=== PATIENT | female | born 1960 | race Caucasian/White ===

== ENCOUNTER 2017-03-05 09:44 | Outpatient (CLI) | payer OTHER | END 2017-03-05 19:09 | disposition home or self-care (01) | LOC: SRD 09:44 | PROVIDERS: ATTEND Family Medicine | DX: M20.11 Hallux valgus (acquired), right foot (principal); M21.071 Valgus deformity, not elsewhere classified, right ankle; M19.071 Primary osteoarthritis, right ankle and foot; M21.611 Bunion of right foot ==

== ENCOUNTER 2017-06-30 07:48 | Outpatient (CLI) | payer OTHER ==
[2017-06-30 08:12] LABS: BASOPHILS # (AUTO) 0.1 K/uL (0.0-0.2); BASOPHILS % (AUTO) 1.2 % (0.0-2.0); EOSINOPHILS # (AUTO) 0.2 K/uL (0.0-0.4); EOSINOPHILS % (AUTO) 3.4 % (0.0-4.0); HEMATOCRIT 47.1 % (36-48); HEMOGLOBIN 15.2 g/dL (12.0-16.0); LYMPHOCYTES # (AUTO) 1.7 K/uL (1.0-5.5); LYMPHOCYTES % (AUTO) 34.2 % (20.5-51.5); MEAN CORPUSCULAR HEMOGLOBIN 29 pg (27-31); MEAN CORPUSCULAR HGB CONC 32 % (32-36); MEAN CORPUSCULAR VOLUME 91 fL (79.0-98.0); MONOCYTES # (AUTO) 0.5 K/uL (0.0-1.0); MONOCYTES % (AUTO) 9.5 % (1.7-9.3); NEUTROPHILS # (AUTO) 2.4 K/uL (1.8-7.7); NEUTROPHILS % (AUTO) 51.7 % (40.0-70.0); PLATELET COUNT (AUTO) 251 K/uL (130-430); RED CELL DISTRIBUTION WIDTH 11.7 % (9.0-15.0); WHITE BLOOD COUNT (AUTO) 4.9 K/uL (4.8-10.8)
[2017-06-30 08:40] LABS: BILIRUBIN,URINE NEGATIVE (NEGATIVE); BLOOD, URINE 1+ (NEGATIVE); CLARITY/URINE SL HAZY (CLEAR); COLOR,URINE YELLOW (YELLOW); GLUCOSE,URINE NEGATIVE (NEGATIVE); KETONES,URINE NEGATIVE (NEGATIVE); LEUKOCYTE ESTERASE ,URINE NEGATIVE (NEGATIVE); NITRITE, URINE NEGATIVE (NEGATIVE); PH,URINE 5.5 (5.0-8.0); PROTEIN URINE NEGATIVE (NEGATIVE); UROBILINOGEN,URINE 0.2 (0.2-1.0)
[2017-06-30 08:41] LABS: CALCIUM 9.6 mg/dL (8.4-11.0); CREATININE 0.72 mg/dL (0.55-1.30); POTASSIUM 4.3 mmol/L (3.5-5.1); TOTAL BILIRUBIN 0.7 mg/dL (0.0-1.0)
[2017-06-30 08:49] LABS: THYROID STIMULATING HORMONE 1.33 uIu/mL (0.34-4.82)
[2017-06-30 09:18] LABS: BACTERIA,URINE RARE /HPF (None Seen); WBC,URINE 0-3 /HPF (0-3)
[2017-06-30 09:19] LABS: MUCUS,URINE 1+ /LPF (None Seen)
[2017-07-01 06:06] LABS: HEMOGLOBIN A1C 5.6 % (4.8-5.6)
[2017-07-01 12:09] LABS: T4 (THYROXINE) 6.5 ug/dL (4.5-12.0); TRIIODOTHYRONINE, FREE 3.1 pg/mL (2.0-4.4)
== END 2017-06-30 20:51 | disposition home or self-care (01) ==
LOC: SLB 07:48
PROVIDERS: ATTEND Family Medicine
DX: M17.11 Unilateral primary osteoarthritis, right knee (principal); M16.11 Unilateral primary osteoarthritis, right hip; M47.894 Other spondylosis, thoracic region; E04.1 Nontoxic single thyroid nodule
CPT/HCPCS: 36415; 71250-TC; 73502; 73564; 80053; 80061; 81000-TC; 82977-TC; 83036; 84436; 84443-TC; 84480; 84481; 85025

== ENCOUNTER 2017-08-13 08:02 | Outpatient (CLI) | payer OTHER | END 2017-08-13 19:40 | disposition home or self-care (01) | LOC: SUS 08:02 | PROVIDERS: ATTEND Family Medicine | DX: Z12.31 Encounter for screening mammogram for malignant neoplasm of breast (principal); M17.11 Unilateral primary osteoarthritis, right knee; E04.2 Nontoxic multinodular goiter | CPT/HCPCS: 73721; 76536; G0202 ==

== ENCOUNTER 2017-09-10 13:30 | Outpatient (CLI) | payer OTHER | END 2017-09-10 18:45 | disposition home or self-care (01) | LOC: SRD 13:30 | PROVIDERS: ATTEND Orthopaedic Surgery | DX: M25.561 Pain in right knee (principal) ==

== ENCOUNTER 2017-09-16 11:26 | Outpatient (CLI) | payer OTHER | END 2017-09-16 19:49 | disposition home or self-care (01) | LOC: SMI 11:26 | PROVIDERS: ATTEND Family Medicine | DX: M51.26 Other intervertebral disc displacement, lumbar region (principal) | CPT/HCPCS: 72148 ==

== ENCOUNTER 2018-07-12 10:02 | Outpatient (CLI) | payer OTHER | END 2018-07-12 19:23 | disposition home or self-care (01) | LOC: SMI 10:02 | PROVIDERS: ATTEND Family Medicine | DX: M23.91 Unspecified internal derangement of right knee (principal); M25.461 Effusion, right knee | CPT/HCPCS: 73721 ==

== ENCOUNTER 2018-10-22 11:19 | Outpatient (CLI) | payer OTHER ==
[2018-10-22 11:41] LABS: BILIRUBIN,URINE NEGATIVE (NEGATIVE); BLOOD, URINE 1+ (NEGATIVE); CLARITY/URINE CLEAR (CLEAR); COLOR,URINE YELLOW (YELLOW); GLUCOSE,URINE NEGATIVE (NEGATIVE); KETONES,URINE NEGATIVE (NEGATIVE); LEUKOCYTE ESTERASE ,URINE NEGATIVE (NEGATIVE); NITRITE, URINE NEGATIVE (NEGATIVE); PROTEIN URINE NEGATIVE (NEGATIVE); UROBILINOGEN,URINE 0.2 (0.2-1.0)
[2018-10-22 11:56] LABS: BACTERIA,URINE FEW /HPF (None Seen); MUCUS,URINE 1+ /LPF (None Seen); RBC,URINE 0-3 /HPF (0-3)
== END 2018-10-22 19:31 | disposition home or self-care (01) ==
LOC: SLB 11:19
PROVIDERS: ATTEND Family Medicine
DX: R35.0 Frequency of micturition (principal)
CPT/HCPCS: 81000-TC; 87086

== ENCOUNTER 2018-10-28 09:45 | Outpatient (CLI) | payer OTHER ==
[2018-10-28 10:11] LABS: BILIRUBIN,URINE NEGATIVE (NEGATIVE); CLARITY/URINE CLEAR (CLEAR); COLOR,URINE YELLOW (YELLOW); GLUCOSE,URINE NEGATIVE (NEGATIVE); KETONES,URINE NEGATIVE (NEGATIVE); LEUKOCYTE ESTERASE ,URINE NEGATIVE (NEGATIVE); NITRITE, URINE NEGATIVE (NEGATIVE); PH,URINE 5.5 (5.0-8.0); PROTEIN URINE NEGATIVE (NEGATIVE); UROBILINOGEN,URINE 0.2 (0.2-1.0)
[2018-10-28 10:15] LABS: BLOOD, URINE TRACE (NEGATIVE)
[2018-10-28 10:25] LABS: BACTERIA,URINE FEW /HPF (None Seen); MUCUS,URINE None Seen /LPF (None Seen); RBC,URINE 0-3 /HPF (0-3); WBC,URINE 0-3 /HPF (0-3)
== END 2018-10-28 21:04 | disposition home or self-care (01) ==
LOC: SLB 09:45
PROVIDERS: ATTEND Family Medicine
DX: N39.0 Urinary tract infection, site not specified (principal)
CPT/HCPCS: 81000-TC

== ENCOUNTER 2018-12-14 11:53 | Outpatient (CLI) | payer OTHER | END 2018-12-14 21:20 | disposition home or self-care (01) | LOC: SCT 11:53 | PROVIDERS: ATTEND Family Medicine | DX: R10.31 Right lower quadrant pain (principal) ==

== ENCOUNTER 2019-02-25 08:10 | Outpatient (CLI) | payer OTHER ==
[2019-02-25 09:00] LABS: BASOPHILS % (AUTO) 0.7 % (0.0-2.0); EOSINOPHILS # (AUTO) 0.2 K/uL (0.0-0.4); EOSINOPHILS % (AUTO) 3.3 % (0.0-4.0); HEMATOCRIT 44.6 % (36-48); HEMOGLOBIN 15.1 g/dL (12.0-16.0); LYMPHOCYTES # (AUTO) 1.5 K/uL (1.0-5.5); LYMPHOCYTES % (AUTO) 31.7 % (20.5-51.5); MEAN CORPUSCULAR HEMOGLOBIN 31 pg (27-31); MEAN CORPUSCULAR HGB CONC 34 % (32-36); MEAN CORPUSCULAR VOLUME 92 fL (79.0-98.0); MONOCYTES # (AUTO) 0.5 K/uL (0.0-1.0); MONOCYTES % (AUTO) 10.1 % (1.7-9.3); NEUTROPHILS # (AUTO) 2.6 K/uL (1.8-7.7); NEUTROPHILS % (AUTO) 54.2 % (40.0-70.0); PLATELET COUNT (AUTO) 238 K/uL (130-430); RED BLOOD CELL COUNT(AUTO) 4.85 MIL/uL (4.2-6.2); RED CELL DISTRIBUTION WIDTH 12.8 % (9.0-15.0); WHITE BLOOD COUNT (AUTO) 4.8 K/uL (4.8-10.8)
[2019-02-25 09:36] LABS: CALCIUM 9.7 mg/dL (8.4-11.0); CREATININE 0.77 mg/dL (0.55-1.30); FREE T4 (FREE THYROXINE) 0.8 ng/dL (0.6-1.6); POTASSIUM 4.5 mmol/L (3.5-5.1); THYROID STIMULATING HORMONE 1.28 uIu/mL (0.34-4.82); TOTAL BILIRUBIN 0.6 mg/dL (0.0-1.0)
[2019-02-26 06:06] LABS: TRIIODOTHYRONINE, FREE 2.6 pg/mL (2.0-4.4)
== END 2019-02-25 19:27 | disposition home or self-care (01) ==
LOC: SLB 08:10
PROVIDERS: ATTEND Family Medicine
DX: E04.1 Nontoxic single thyroid nodule (principal); R49.9 Unspecified voice and resonance disorder
CPT/HCPCS: 36415; 76536-TC; 80053; 82306; 82607; 84439; 84443-TC; 84480; 84481; 85025

== ENCOUNTER 2019-09-06 13:30 | Outpatient (CLI) | payer OTHER | END 2019-09-06 21:14 | disposition home or self-care (01) | LOC: SRD 13:30 | PROVIDERS: ATTEND Family Medicine | DX: K41.90 Unilateral femoral hernia, without obstruction or gangrene, not specified as recurrent (principal); K57.90 Diverticulosis of intestine, part unspecified, without perforation or abscess without bleeding ==

== ENCOUNTER 2019-10-18 06:55 | Day surgery (SDC) | payer OTHER ==
[2019-10-14 11:25] LABS: BASOPHILS # (AUTO) 0.1 K/uL (0.0-0.2); BASOPHILS % (AUTO) 0.9 % (0.0-2.0); EOSINOPHILS # (AUTO) 0.2 K/uL (0.0-0.4); EOSINOPHILS % (AUTO) 3.6 % (0.0-4.0); HEMATOCRIT 44.7 % (36-48); HEMOGLOBIN 14.8 g/dL (12.0-16.0); LYMPHOCYTES # (AUTO) 1.9 K/uL (1.0-5.5); LYMPHOCYTES % (AUTO) 34.3 % (20.5-51.5); MEAN CORPUSCULAR HEMOGLOBIN 31 pg (27-31); MEAN CORPUSCULAR HGB CONC 33 % (32-36); MEAN CORPUSCULAR VOLUME 93 fL (79.0-98.0); MONOCYTES # (AUTO) 0.5 K/uL (0.0-1.0); MONOCYTES % (AUTO) 8.4 % (1.7-9.3); NEUTROPHILS # (AUTO) 2.8 K/uL (1.8-7.7); NEUTROPHILS % (AUTO) 52.8 % (40.0-70.0); PLATELET COUNT (AUTO) 238 K/uL (130-430); RED CELL DISTRIBUTION WIDTH 12.5 % (9.0-15.0); WHITE BLOOD COUNT (AUTO) 5.4 K/uL (4.8-10.8)
[2019-10-14 11:34] LABS: PROTHROMBIN TIME 10.1 SECS (9.5-12.5)
[2019-10-14 11:44] LABS: ALBUMIN 3.9 g/dL (3.4-4.8); CALCIUM 9.5 mg/dL (8.4-11.0); CREATININE 0.75 mg/dL (0.55-1.30); POTASSIUM 4.2 mmol/L (3.5-5.1); TOTAL BILIRUBIN 0.5 mg/dL (0.0-1.0)
[~2019-10-18] VITALS: Ht 175.3 cm; Wt 84.8 kg
[2019-10-18] MEDS ORDERED: NS 1000 ML IV.SOLN IV ONE (07:35)
[2019-10-18] MEDS ORDERED: fentaNYL CITRATE/PF 100 MCG/2 ML AMP IVP ONE (07:35)
[2019-10-18] MEDS ORDERED: BUPIVACAINE LIPOSOME/PF 266 MG/20 ML VIAL INFIL ONE (07:35)
[2019-10-18] MEDS ORDERED: SEVOFLURANE 15 MIN GAS INH ONE (07:35)
[2019-10-18] MEDS ORDERED: KETOROLAC TROMETHAMINE 30 MG VIAL IVP ONE (07:35)
[2019-10-18] MEDS ORDERED: BUPIVACAINE /EPINEPHRINE/PF 0.25% 30 ML VIAL INJ ONE (07:35)
[2019-10-18] MEDS ORDERED: ROCURONIUM BROMIDE 10 MG/ML (ZEMURON) IV ONE (07:35)
[2019-10-18] MEDS ORDERED: METOCLOPRAMIDE HCL 10 MG/2 ML VIAL IVP ONE (07:35)
[2019-10-18] MEDS ORDERED: CEFAZOLIN 2 GM IVPB PREMIX 50 ML IV ONE (07:35)
[2019-10-18] MEDS ORDERED: PROPOFOL 200MG/ 20ML VIAL (DIPRIVAN) IV ONE (07:35)
[2019-10-18] MEDS ORDERED: NEOSTIGMINE METHYLSULFATE 1 MG/ML, 10 ML VIAL IVP ONE (07:35)
[2019-10-18] MEDS ORDERED: ONDANSETRON HCL 4 MG/2 ML VIAL IVP ONE (07:35)
[2019-10-18] MEDS ORDERED: MIDAZOLAM HCL 5 MG/5 ML VIAL IVP ONE (07:35)
[2019-10-18] MEDS ORDERED: GLYCOPYRROLATE 0.2 MG/ML VIAL IJ ONE (07:35)
[2019-10-18] MEDS ORDERED: LR 500 ML IV SCH (08:10)
[2019-10-18] MEDS ORDERED: ONDANSETRON HCL 4 MG/2 ML VIAL IVP PRN (08:15)
[2019-10-18] MEDS ORDERED: KETOROLAC TROMETHAMINE 30 MG VIAL IVP PRN (08:15)
[2019-10-18] MEDS ORDERED: HYDROcodone/ACETAMIN 5-325 MG TAB (NORCO/ VICODIN) PO PRN (09:00)
[2019-10-18] MEDS: HYDROmorphone 1 MG INJ. 1 MG/ML AMPUL IVP PRN ×2 (09:10→09:30)
[2019-10-18 10:25] VITALS: BP_SYST 121
[2019-10-18] MEDS ORDERED: HYDROcodone/ACETAMIN 5-325 MG TAB (NORCO/ VICODIN) ONE (10:36)
[2019-10-18] MEDS ORDERED: ONDANSETRON HCL 4 MG/2 ML VIAL ONE (11:05)
[2019-10-18] MEDS ORDERED: ACETAMINOPHEN 325 MG TABLET PO PRN (11:15)
== END 2019-10-18 13:20 | disposition home or self-care (01) ==
LOC: SMU 06:55 → SDS 06:55
PROVIDERS: ATTEND Surgery
DX: K40.90 Unilateral inguinal hernia, without obstruction or gangrene, not specified as recurrent (principal); K42.0 Umbilical hernia with obstruction, without gangrene; Z79.01 Long term (current) use of anticoagulants
CPT/HCPCS: 36415; 49505; 49587; 71046; 80053; 85025; 85610; 85730; 88302; 93005; C1781; C9290; J0690; J1885; J2250; J2405; J2704; J2710; J2765; J3010; J3490 ×2; J7030; J7120

== ENCOUNTER 2019-12-22 12:42 | Outpatient (CLI) | payer OTHER | END 2019-12-22 21:12 | disposition home or self-care (01) | LOC: EEVIPCON 12:42 → SLB 12:42 | PROVIDERS: ATTEND Otolaryngology | DX: Z03.818 Encounter for observation for suspected exposure to other biological agents ruled out (principal) | CPT/HCPCS: U0002 ==

== ENCOUNTER 2020-01-13 07:34 | Day surgery (SDC) | payer OTHER, SELFPAY ==
[~2020-01-13] VITALS: Ht 175.3 cm; Wt 83.0 kg
[2020-01-13] MEDS ORDERED: SIMETHICONE 40 MG/0.6 ML ML ONE (08:04)
[2020-01-13] MEDS ORDERED: MEPERIDINE HCL/PF 25 MG/ML DISP.SYRIN ONE ×2 (08:04→09:36)
[2020-01-13] MEDS ORDERED: MIDAZOLAM HCL 5 MG/5 ML VIAL ONE ×2 (08:05→09:47)
[2020-01-13] MEDS ORDERED: MEPERIDINE HCL/PF 25 MG/ML DISP.SYRIN IVP ONE ×2 (09:16→09:30)
[2020-01-13] MEDS ORDERED: MIDAZOLAM HCL 5 MG/5 ML VIAL IVP ONE ×3 (09:20→09:30)
[2020-01-13 09:50] VITALS: BP_SYST 111
== END 2020-01-13 10:30 | disposition home or self-care (01) ==
LOC: EEVIPCON 07:34 → SDS 07:34 → SMU 07:35 → SDS 10:30
PROVIDERS: ATTEND Internal Medicine Gastroenterology
DX: Z12.11 Encounter for screening for malignant neoplasm of colon (principal); Z11.59 Encounter for screening for other viral diseases; D12.3 Benign neoplasm of transverse colon; K57.30 Diverticulosis of large intestine without perforation or abscess without bleeding; K64.8 Other hemorrhoids
CPT/HCPCS: 45385; 88305; 99152; 99153; C9803; G0378; J2175; J2250; U0003

== ENCOUNTER 2020-01-19 08:52 | Outpatient (CLI) | payer OTHER | END 2020-01-19 20:13 | disposition home or self-care (01) | LOC: SMI 08:52 | PROVIDERS: ATTEND Family Medicine | DX: M25.461 Effusion, right knee (principal); M25.561 Pain in right knee; M94.261 Chondromalacia, right knee | CPT/HCPCS: 73721 ==

== ENCOUNTER 2020-07-19 07:55 | Outpatient (CLI) | payer OTHER | END 2020-07-19 20:50 | disposition home or self-care (01) | LOC: SMA 07:55 | PROVIDERS: ATTEND Specialist | DX: Z12.31 Encounter for screening mammogram for malignant neoplasm of breast (principal) | CPT/HCPCS: 77067 ==

== ENCOUNTER 2020-07-20 07:30 | Outpatient (CLI) | payer OTHER ==
[2020-07-20 08:30] LABS: BASOPHILS # (AUTO) 0.1 K/uL (0.0-0.2); BASOPHILS % (AUTO) 1.6 % (0.0-2.0); EOSINOPHILS # (AUTO) 0.2 K/uL (0.0-0.4); EOSINOPHILS % (AUTO) 4.4 % (0.0-4.0); HEMATOCRIT 44.6 % (36-48); LYMPHOCYTES # (AUTO) 1.5 K/uL (1.0-5.5); LYMPHOCYTES % (AUTO) 33.4 % (20.5-51.5); MEAN CORPUSCULAR HEMOGLOBIN 31 pg (27-31); MEAN CORPUSCULAR HGB CONC 34 % (32-36); MEAN CORPUSCULAR VOLUME 93 fL (79.0-98.0); MONOCYTES # (AUTO) 0.4 K/uL (0.0-1.0); MONOCYTES % (AUTO) 8.6 % (1.7-9.3); NEUTROPHILS # (AUTO) 2.3 K/uL (1.8-7.7); PLATELET COUNT (AUTO) 233 K/uL (130-430); RED BLOOD CELL COUNT(AUTO) 4.79 MIL/uL (4.2-6.2); RED CELL DISTRIBUTION WIDTH 12.6 % (9.0-15.0); WHITE BLOOD COUNT (AUTO) 4.4 K/uL (4.8-10.8)
[2020-07-20 08:39] LABS: ALBUMIN 3.8 g/dL (3.4-4.8); CALCIUM 8.9 mg/dL (8.4-11.0); CREATININE 0.69 mg/dL (0.55-1.30); POTASSIUM 4.5 mmol/L (3.5-5.1); THYROID STIMULATING HORMONE 1.63 uIu/mL (0.36-3.74); TOTAL BILIRUBIN 0.4 mg/dL (0.0-1.0)
[2020-07-21 09:06] LABS: T4 (THYROXINE) 6.4 ug/dL (4.5-12.0)
== END 2020-07-20 17:03 | disposition home or self-care (01) ==
LOC: SLB 07:30
PROVIDERS: ATTEND Physician Assistant
DX: Z01.419 Encounter for gynecological examination (general) (routine) without abnormal findings (principal); E03.9 Hypothyroidism, unspecified
CPT/HCPCS: 36415; 80053; 80061; 82306; 84436; 84443-TC; 84480; 85025

== ENCOUNTER 2020-09-28 12:06 | Outpatient (CLI) | payer OTHER | END 2020-09-28 20:30 | disposition home or self-care (01) | LOC: SLB 12:06 | PROVIDERS: ATTEND Family Medicine | DX: Z01.84 Encounter for antibody response examination (principal) | CPT/HCPCS: 36415 ==

== ENCOUNTER 2021-08-05 08:03 | Outpatient (CLI) | payer OTHER ==
[2021-08-05 08:52] LABS: BASOPHILS % (AUTO) 1.1 % (0.0-2.0); EOSINOPHILS # (AUTO) 0.2 K/uL (0.0-0.4); EOSINOPHILS % (AUTO) 3.7 % (0.0-4.0); HEMATOCRIT 44.3 % (36-48); LYMPHOCYTES # (AUTO) 1.4 K/uL (1.0-5.5); MEAN CORPUSCULAR HEMOGLOBIN 31 pg (27-31); MEAN CORPUSCULAR HGB CONC 34 % (32-36); MEAN CORPUSCULAR VOLUME 91 fL (79.0-98.0); MONOCYTES # (AUTO) 0.4 K/uL (0.0-1.0); NEUTROPHILS # (AUTO) 2.6 K/uL (1.8-7.7); NEUTROPHILS % (AUTO) 55.2 % (40.0-70.0); PLATELET COUNT (AUTO) 232 K/uL (130-430); RED BLOOD CELL COUNT(AUTO) 4.89 MIL/uL (4.2-6.2); RED CELL DISTRIBUTION WIDTH 12.5 % (9.0-15.0); WHITE BLOOD COUNT (AUTO) 4.6 K/uL (4.8-10.8)
[2021-08-05 09:22] LABS: ALBUMIN 4.2 g/dL (3.4-4.8); CALCIUM 8.9 mg/dL (8.4-11.0); CREATININE 0.74 mg/dL (0.55-1.30); FREE T4 (FREE THYROXINE) 1.1 ng/dl (0.8-1.5); THYROID STIMULATING HORMONE 1.67 uIu/mL (0.36-3.74); TOTAL BILIRUBIN 0.6 mg/dL (0.0-1.0)
== END 2021-08-05 20:40 | disposition home or self-care (01) ==
LOC: SLB 08:03
PROVIDERS: ATTEND Family Medicine
DX: Z12.31 Encounter for screening mammogram for malignant neoplasm of breast (principal); Z01.419 Encounter for gynecological examination (general) (routine) without abnormal findings; N64.89 Other specified disorders of breast
CPT/HCPCS: 36415; 77067; 80053; 80061; 84439; 84443; 84479; 85025

== ENCOUNTER 2021-11-26 07:36 | Outpatient (CLI) | payer OTHER | END 2021-11-26 20:33 | disposition home or self-care (01) | LOC: SRD 07:36 | PROVIDERS: ATTEND Family Medicine | DX: M19.032 Primary osteoarthritis, left wrist (principal); M25.532 Pain in left wrist; M89.38 Hypertrophy of bone, other site ==

== ENCOUNTER 2021-12-13 07:21 | Outpatient (CLI) | payer OTHER ==
[2021-12-13 08:05] LABS: BASOPHILS % (AUTO) 0.2 % (0.0-2.0); EOSINOPHILS # (AUTO) 0.3 K/uL (0.0-0.4); EOSINOPHILS % (AUTO) 6.2 % (0.0-4.0); HEMATOCRIT 43.2 % (36-48); HEMOGLOBIN 14.5 g/dL (12.0-16.0); LYMPHOCYTES # (AUTO) 1.4 K/uL (1.0-5.5); LYMPHOCYTES % (AUTO) 33.3 % (20.5-51.5); MEAN CORPUSCULAR HEMOGLOBIN 30 pg (27-31); MEAN CORPUSCULAR HGB CONC 34 % (32-36); MEAN CORPUSCULAR VOLUME 90 fL (79.0-98.0); MONOCYTES # (AUTO) 0.5 K/uL (0.0-1.0); MONOCYTES % (AUTO) 10.7 % (1.7-9.3); NEUTROPHILS # (AUTO) 2.1 K/uL (1.8-7.7); NEUTROPHILS % (AUTO) 49.6 % (40.0-70.0); PLATELET COUNT (AUTO) 212 K/uL (130-430); RED CELL DISTRIBUTION WIDTH 12.6 % (9.0-15.0); WHITE BLOOD COUNT (AUTO) 4.2 K/uL (4.8-10.8)
[2021-12-13 08:42] LABS: ALBUMIN 3.9 g/dL (3.4-4.8); CREATININE 0.79 mg/dL (0.55-1.30); FREE T4 (FREE THYROXINE) 1.1 ng/dl (0.8-1.5); POTASSIUM 4.6 mmol/L (3.5-5.1); THYROID STIMULATING HORMONE 1.82 uIu/mL (0.36-3.74); TOTAL BILIRUBIN 0.4 mg/dL (0.0-1.0)
[2021-12-13 09:20] LABS: BILIRUBIN,URINE NEGATIVE (NEGATIVE); CLARITY/URINE CLEAR (CLEAR); COLOR,URINE YELLOW (YELLOW); GLUCOSE,URINE NEGATIVE (NEGATIVE); KETONES,URINE NEGATIVE (NEGATIVE); LEUKOCYTE ESTERASE ,URINE NEGATIVE (NEGATIVE); NITRITE, URINE NEGATIVE (NEGATIVE); PH,URINE 5.5 (5.0-8.0); PROTEIN URINE NEGATIVE (NEGATIVE); UROBILINOGEN,URINE 0.2 (0.2-1.0)
[2021-12-13 09:30] LABS: BLOOD, URINE TRACE (NEGATIVE)
[2021-12-13 11:05] LABS: BACTERIA,URINE FEW /HPF (None Seen); MUCUS,URINE 1+ /LPF (None Seen); RBC,URINE 0-3 /HPF (0-3); WBC,URINE 0-3 /HPF (0-3)
== END 2021-12-13 19:41 | disposition home or self-care (01) ==
LOC: SLB 07:21
PROVIDERS: ATTEND Family Medicine
DX: Z00.00 Encounter for general adult medical examination without abnormal findings (principal); Z12.11 Encounter for screening for malignant neoplasm of colon
CPT/HCPCS: 36415; 80053; 80061; 81000; 82306; 82607; 84439; 84443; 85025

== ENCOUNTER 2022-01-15 11:07 | Outpatient (CLI) | payer OTHER | END 2022-01-15 20:47 | disposition home or self-care (01) | LOC: SRD 11:07 | PROVIDERS: ATTEND Family Medicine | DX: M25.551 Pain in right hip (principal); M47.816 Spondylosis without myelopathy or radiculopathy, lumbar region | CPT/HCPCS: 73502 ==

== ENCOUNTER 2022-07-28 07:24 | Outpatient (CLI) | payer OTHER ==
[2022-07-28 08:51] LABS: CHOLESTEROL 181 mg/dL (<200); HDL CHOLESTEROL 54 mg/dL (>55); LDL CHOLESTEROL 115 mg/dL (<100); TRIGLYCERIDES 64 mg/dL (30-150)
== END 2022-07-28 19:02 | disposition home or self-care (01) ==
LOC: SLB 07:24
PROVIDERS: ATTEND Family Medicine
DX: E78.00 Pure hypercholesterolemia, unspecified (principal)
CPT/HCPCS: 36415; 80061

== ENCOUNTER 2023-01-07 08:27 | Emergency (ER) | payer OTHER ==
[~2023-01-07] VITALS: Ht 177.8 cm; Wt 83.5 kg
[2023-01-07 08:31] VITALS: BP_SYST 137
[2023-01-07] MEDS ORDERED: IBUPROFEN 800 MG TABLET PO ONE (09:15)
[2023-01-07 10:32] VITALS: BP_SYST 137
== END 2023-01-07 10:34 | disposition home or self-care (01) ==
LOC: SED 08:27
DX: S80.02XA Contusion of left knee, initial encounter (principal); S90.112A Contusion of left great toe without damage to nail, initial encounter; Z91.048 Other nonmedicinal substance allergy status; Z79.899 Other long term (current) drug therapy; W18.30XA Fall on same level, unspecified, initial encounter; Y93.89 Activity, other specified; Y92.89 Other specified places as the place of occurrence of the external cause; Y99.8 Other external cause status
CPT/HCPCS: 73564; 99284